=== PATIENT | male | born 1945 | race Caucasian/White ===

== ENCOUNTER → 2021-06-12 09:15 | Outpatient (CLI) | payer MEDICARE, OTHER, SELFPAY ==
[2021-06-12 09:47] LABS: COVID19 -Nasal RAPID Negative (Negative)
== END ==
PROVIDERS: Visit Provider Specialist
DX: Z20.822 Contact with and (suspected) exposure to COVID-19 (principal)
CPT/HCPCS: 87635; C9803

== ENCOUNTER 2021-06-15 06:31 | Day surgery (SDC) | payer MEDICARE, OTHER, SELFPAY ==
[2021-06-10 08:14] VITALS: BMI 24.1
[2021-06-15] VITALS (13 sets, daily range): BP systolic 102–157; BP diastolic 53–79; PULSE 63–87; RESP 14–18; TEMP 36.3–37; O2SAT 93–98; BMI 24.1
--- NOTE | 2021-06-15 | PATH_ITS ---
[facility] Accession Number: [id number] . 01 Material submitted: . prostate - PROSTATE CHIPS . 02 Diagnosis: Prostate, Transurethral Resection: Benign prostatic parenchyma with features of benign prostatic hyperplasia. No evidence of malignancy. MRV 06/19/2021 1439 Local . 02 Electronically signed: . Dakotah Schmitt MD, PhD, Pathologist NPI- [id number] . 01 Gross description: . Received in formalin and labeled with the patient's name and designated 1. Prostate chips is a 13.0 gram, 5.0 x 5.0 x 2.0 cm aggregate of singh-roberts rubbery tissue fragments, entirely submitted in A1-A8. (LYN:[id number]) /[facility] 06/18/2021 1821 Local . 02 Pathologist provided ICD-10: N40.1 . 02 CPT . 828571 Specimen Comment: A courtesy copy of this report has been sent to [phone] Performed at: 01 [facility] [address] [facility], [place], [place] [id number] MD Jay Navarro MD Phone: [phone] Performed at: 02 [facility] [address] [place], [place] [id number] MD Annie Thrasher MD Phone: [phone]
[2021-06-15] MEDS: LACTATED RINGERS 1,000 ML 42 ML IV ×2 (07:18→09:18)
--- NOTE | 2021-06-15 07:40 | P.OP.PRE_ITS ---
Pre-operative Note COVID-19 Criteria for continued procedure: Expected advancement of disease process, Possibility delay results in more complex future surgery or treatment, Increased loss of function, Deterioration of the patient's condition or overall health, Delay expected to result in less-positive ultimate med/surg outcome and Non- surgical alternatives not available or appropriate per current SOC Interval Note History & Physical reviewed/Exam performed by Physician: Yes Changes to H&P: No
[2021-06-15] MEDS: BELLADONNA/OPIUM SUPPOSITORIES 1 EACH PR (08:00)
[2021-06-15] MEDS: CEFAZOLIN 2 GM/20 ML SYRINGE IV (08:01)
--- NOTE | 2021-06-15 08:19 | SUR.OPER ---
Lithotomy on padded OR bed, head on pillow, arms secured on padded arm boards at <90 degrees abduction. Legs secured in padded yellow fins stirrups.
[2021-06-15] MEDS: TRANEXAMIC ACID 1,000 MG VIAL 1000 MG IV (09:05)
--- NOTE | 2021-06-15 10:09 | P.OP_ITS ---
Operative Date/Time/Diagnoses Date of procedure: 06/15/21 Time of procedure: 09:35 Pre-op diagnosis: Bladder outlet obstruction. Post-op diagnosis: same Procedure & Clinicians Procedure: 1. Transurethral resection of prostate. Same procedure as scheduled: Yes Indications: 1. Bladder outlet obstruction. 2. Failure medical therapy. Surgeon: Анна Klein Click Yes if Unassisted: Yes Anesthesia Type: General Operative Notes Findings: 1. Urethra-normal caliber without annular stricture or lesion. 2. External sphincter coapted with normal overlying urothelium. 3. Prostate 4-4.5 cm length with obstructing trilobar hyperplasia and elevated median bar. 4. Bladder-1 to 2+ trabeculation. Normal ureteral orifices bilaterally. No evidence of diverticulum, stone, or tumor. Closure Type: not applicable Specimen(s): other (TUR chips) Applied: catheter ([address] hematuria catheter to continuous bladder irrigation.) Estimated Blood Loss (mL): 5 Blood products transfused: none Procedure in detail: Patient was positioned in supine was administered general anesthesia. He was then repositioned in semi lithotomy and the lower abdomen, genitalia, and groin were then prepped and draped in sterile fashion. The resectoscope was and Avastin lower urinary tract with the findings as described above. The scope was then fitted with the working element and resecting loop. Transurethral resection of prostate was then commenced. Incisions were made at the 1 and 11:00 a.m. positions to the capsule from bladder neck to verumontanum. There intervening anterior tissue was then resected. Next, a left lateral lobe was resected to a point near the posterior position median lobe. Then, same approach from bladder neck to verumontanum was undertaken on the right lateral lobe. Finally the median bar and median lobe tissue was resected from bladder neck to verumontanum. At no point was resection carried out more distally the verumontanum. Hemostasis was excellent and completed with the cautery loop. All chips were then irrigated from the bladder and prostatic fossa and were submitted to pathology for routine gross and microscopic examination. Bladder was then left partial filled and the resectoscope was removed. A [address] hemat[address] catheter was then positioned over a catheter guide stylet and was then advanced into the bladder lumen. The balloon was filled to 30 cc. The catheter was then hand irrigated to assure patency. Character of the irrigant was nearly clear. The 3 way catheter was then set to sterile normal saline continuous bladder irrigation inflow and gravity drain outflow. The patient was then repositioned in supine, was awakened, then was transferred to a gurney for transport to PACU. Complications: none Post-operative Condition: stable Disposition: PACU Plan for aftercare: Admit to acute care-outpatient with the bed.
[2021-06-15] MEDS: OXYCODONE IR 5 MG TABLET PO ×2 (10:23→15:20)
[2021-06-15 10:36] LABS: Appearance Urine UA CLEAR; Bilirubin Urine UA NEGATIVE (NEGATIVE); Color Urine UA YELLOW; Glucose Urine UA NEGATIVE (Negative); Ketones Urine UA NEGATIVE (NEGATIVE); Leukocyte Esterase Urine UA NEGATIVE (NEGATIVE); Nitrite Urine UA NEGATIVE (Negative); Occult Blood Urine UA 3+ (Negative); Protein Urine UA NEGATIVE (Negative); Urobilinogen Urine UA 0.2 E.U./dL (0.2)
--- NOTE | 2021-06-15 10:44 | SUR.PHASEI ---
Pt escorted to room 204 by 2 RNs by bed. Pt awake and alert, bedside report given.
[2021-06-15 11:02] LABS: Bacteria Urine None Seen; Culture Indicated Urine Cult Not Indicated; RBC Urine 5-10/HPF (0-5/HPF); WBC Urine None Seen (0-5/HPF)
[2021-06-15] MEDS: LACTATED RINGERS 1,000 ML 125 ML IV (11:20)
[2021-06-15] MEDS: ACETAMINOPHEN 325 MG TABLET 650 MG PO (15:24)
[2021-06-15] MEDS: DOXAZOSIN 4 MG TABLET 8 MG PO (21:52)
[2021-06-16 00:07] VITALS: BP 110/50; PULSE 66; RESP 18; TEMP 36.8; O2SAT 95
[2021-06-16] MEDS: LACTATED RINGERS 1,000 ML 125 ML IV (02:46)
[2021-06-16 04:49] VITALS: BP 129/62; PULSE 76; RESP 18; TEMP 36.5; O2SAT 97
[2021-06-16 08:12] VITALS: BP 119/75; PULSE 82
[2021-06-16] MEDS: METOPROLOL ER 25 MG TABLET PO (08:12)
[2021-06-16] MEDS: LOSARTAN 50 MG TABLET PO (08:12)
[2021-06-16] MEDS: ACETAMINOPHEN 325 MG TABLET 650 MG PO (08:13)
[2021-06-16] MEDS: OXYCODONE IR 5 MG TABLET PO (08:17)
--- NOTE | 2021-06-16 09:05 | PC.NURSE ---
Pt received lying awake in bed this a.m. A&Ox3 VSS, afebrile on RA. MD Klein at bedside this a.m. evaluating pt's status and catheter with red (fruit punch color) output. CBI discontinued and patient cleared to discharge home with christensen and antibiotic with a follow up appointment 06/17 with MD Klein in the a.m. Pt verbalizes understanding of medications, activity restrictions, bathing and site care, s/sx of infection, bleeding/ obstruction with christensen. Pt reports minimal discomfort and is medicated with PRN pain medications with good effect. He is educated about leg bag and repeats demonstration. He ambulates out of the hospital with leg bag and overnight bag as well as his belongings to his son's vehicle at 9 a.m. Son escorts patient home and to scrap picker medications.
--- NOTE | 2021-06-17 07:51 | PM.DS.1 ---
History of Present Illness History of Present Illness Date Patient Seen: 06/16/21 Time Patient Seen: 07:30 Chief complaint: OPB Narrative: Patient is a 76-year-old male postoperative day 1 status post transurethral resection of prostate. He has complain of mild pain at tip of penis, annoying interruption of his sleep due to lower extremity sequential compression devices. He otherwise is tolerating a general diet has had return of bowel activity and is ambulating and transferring without assistance. Discharge Providers Provider Date of admission: Patient was admitted on the morning of 06/15/2021 and underwent uncomplicated transurethral resection of the prostate under general anesthesia. Postoperative clinical course was unremarkable. He was able to tolerate general Diet had ability to transfer and ambulate without assistance. Catheter irrigation remained patent and clear to light pink throughout postoperative. I requested a catheter plug be placed in the inflow at about 5:00 a.m.. The appearance of the catheter outflow currently is a burnished orange without clot. Discharge Date: 06/16/21 Consults: 06/15/21 11:20 Consult to Engineering Manager Routine Comment: Discharge provider: Анна Klein MD Exam Vital Signs (past 8 hours): Oxygen Delivery Method Nasal Cannula Oxygen Flow Rate 0 PFSH Medical History BPH (benign prostatic hyperplasia) BPH w urinary obs/LUTS Cancer of skin GERD (gastroesophageal reflux disease) High blood pressure Male circumcision Surgical History H/O hernia repair History of prostate biopsy Family History Mother Hypertension Cancer Hyperlipidemia Blood disease Father Cancer Social History marital status: number of children: 1 household members: none Smoking Status: Never smoker alcohol intake: current Discharge Assessment & Plan Assessment and Plan Assessment: 1. Stable postop day 1 status post transurethral resection of prostate. 2. Pathology pending. Plan of Treatment: 1. Discharge home with indwelling Arteaga catheter. 2. Will schedule supervised voiding trial for 06/17/2021 in the Urology Clinic. 3. Follow-up on pathology when report final. 4. Rx cephalexin 250 mg p.o. b.i.d., 6 tablets. Common side effects, precautions, and intake instructions explained. The patient will use Tylenol or, alternatively, ibuprofen for any postop discomfort. Discharge Plan Discharge Plan Patient Disposition: Home Provider Discharge Comment: Contact Urology Clinic later Discharge orders & Medications Discharge Orders: Discharge (Order); Ordered 06/16/21 Ordered By: Анна Klein Prescriptions: New cephalexin 250 mg tablet 250 mg PO BID Qty: 6 0RF Continued metoprolol succinate 25 mg PO DAILY 0RF telmisartan 40 mg tablet 40 mg PO DAILY 0RF doxazosin 8 mg tablet 8 mg PO DAILY 0RF Diet/Activity/Treatments Diet: Diet as Tolerated Activity: No strenuous activity or lifting greater than 15 lb x 4 weeks. Skin/Wound/Dressing Care Report to your healthcare provider any signs of infection, such as:: chills, fever, night sweats, increased pain and unusual drainage Visit Report/Discharge Packet Instructions: How to Care for Your Arteaga Catheter -- Male, DI for Transurethral Resection of the Prostate Stand Alone Forms: Surgery Discharge Discharge Data Attending Provider: Анна Klein
== END 2021-06-16 09:00 | disposition home or self-care (01) ==
LOC: OR 06:34 → AC 06:35
PROVIDERS: Referring Provider Specialist; Visit Provider Specialist
PROC: 0VT08ZZ Resection of Prostate, Via Natural or Artificial Opening Endoscopic (ICD-10-PCS; CPT 52601; principal; 2021-06-15 07:45)
DX: N40.1 Benign prostatic hyperplasia with lower urinary tract symptoms (principal); K21.9 Gastro-esophageal reflux disease without esophagitis; N13.9 Obstructive and reflux uropathy, unspecified
CPT/HCPCS: 52601; 81001; J0690; J1100; J2250; J2405; J2704; J3010

== ENCOUNTER → 2021-07-14 10:51 | Outpatient (CLI) | payer MEDICARE, OTHER, SELFPAY ==
[2021-06-15 11:10] VITALS: BMI 24.1
== END ==
PROVIDERS: Visit Provider Specialist
DX: N40.1 Benign prostatic hyperplasia with lower urinary tract symptoms (principal); N13.8 Other obstructive and reflux uropathy; R30.0 Dysuria
CPT/HCPCS: 51701; 51798; 87086

== ENCOUNTER → 2021-08-27 07:59 | Outpatient (CLI) | payer MEDICARE, OTHER, SELFPAY ==
[2021-06-15 11:10] VITALS: BMI 24.1
== END ==
PROVIDERS: Visit Provider Specialist
DX: Z09 Encounter for follow-up examination after completed treatment for conditions other than malignant neoplasm (principal); R30.0 Dysuria; N40.1 Benign prostatic hyperplasia with lower urinary tract symptoms; N13.8 Other obstructive and reflux uropathy
CPT/HCPCS: 51798; 81002; 87086

== ENCOUNTER → 2021-11-10 09:39 | Outpatient (CLI) | payer MEDICARE, OTHER, SELFPAY ==
[2021-06-15 11:10] VITALS: BMI 24.1
[2021-11-10 10:40] LABS: Appearance Urine UA CLEAR; Bilirubin Urine UA NEGATIVE (NEGATIVE); Color Urine UA YELLOW; Glucose Urine UA NEGATIVE (Negative); Ketones Urine UA TRACE (NEGATIVE); Leukocyte Esterase Urine UA NEGATIVE (NEGATIVE); Nitrite Urine UA NEGATIVE (Negative); Occult Blood Urine UA NEGATIVE (Negative); Protein Urine UA NEGATIVE (Negative); Urobilinogen Urine UA 0.2 E.U./dL (0.2); pH Urine UA 5.5 (4.5-8.0)
[2021-11-10 10:58] LABS: Bacteria Urine None Seen; Culture Indicated Urine Cult Not Indicated; RBC Urine None Seen (0-5/HPF); Squamous Epithelial Cell Urine None Seen (0-5/HPF); WBC Urine None Seen (0-5/HPF)
== END ==
PROVIDERS: PCP Family Medicine; Referring Provider Specialist; Visit Provider Specialist
DX: N13.8 Other obstructive and reflux uropathy (principal); N40.1 Benign prostatic hyperplasia with lower urinary tract symptoms
CPT/HCPCS: 81001